=== PATIENT | female | born 1980 | race African-American/Black ===

== ENCOUNTER 2018-09-10 12:24 | Outpatient (CLI) | payer OTHER ==
[2018-09-10 13:09] LABS: GLUCOSE,FASTING GESTATIONAL 79 mg/dL (70-110)
== END 2018-09-10 20:06 | disposition home or self-care (01) ==
LOC: MLB 12:24
DX: O99.810 Abnormal glucose complicating pregnancy (principal); O09.519 Supervision of elderly primigravida, unspecified trimester; Z3A.00 Weeks of gestation of pregnancy not specified
CPT/HCPCS: 36415; 82951